=== PATIENT | female | born 2000 | race Caucasian/White ===

== ENCOUNTER 2022-05-23 09:24 | Emergency (ER) | payer SELFPAY ==
[~2022-05-23] VITALS: Ht 165.1 cm; Wt 54.5 kg
[2022-05-23 09:38] VITALS: BP 113/64
[2022-05-23] MEDS ORDERED: TETanus/Pertussis (Acell)/Diphther VAC/PF (Tdap-Adult) 0.5ml syringe IMVAC ONE (10:50)
[2022-05-23] MEDS ORDERED: LIDOcaine 1% W/epiNEPHrine 1:100,000 20ml vial SQ ONE (10:50)
[2022-05-23] MEDS ORDERED: LIDOCAINE 1%/EPI 1:100,000 inj. 10 ML multi-dose vial SQ ONE (10:55)
[2022-05-23] MEDS ORDERED: amox tr/potassium clavulanate 875/125mg TAB PO ONE (11:35)
[2022-05-23] MEDS ORDERED: AMOX-117 PO (11:48)
[2022-05-23] MEDS ORDERED: ibuprofen tablet 400 MG TABLET PO ONE (11:55)
== END 2022-05-23 12:00 | disposition home or self-care (01) ==
LOC: ER 09:25
DX: S61.411A Laceration without foreign body of right hand, initial encounter (principal); F12.90 Cannabis use, unspecified, uncomplicated; W54.0XXA Bitten by dog, initial encounter; Y93.89 Activity, other specified; Y92.89 Other specified places as the place of occurrence of the external cause; Y99.8 Other external cause status
CPT/HCPCS: 12001; 73130; 90471; 90715; 99283; J7030; A6449

== ENCOUNTER 2022-06-02 09:53 | Emergency (ER) | payer SELFPAY ==
[~2022-06-02] VITALS: Ht 165.1 cm; Wt 58.2 kg
[~2022-06-02 09:53] MED LIST: AMOX-117 PO
[2022-06-02 10:18] VITALS: BP 115/69
--- NOTE | 2022-06-02 10:33 | NUR ---
5 sutures removed from right hand
== END 2022-06-02 10:35 | disposition home or self-care (01) ==
LOC: ER 09:55
DX: S61.511D Laceration without foreign body of right wrist, subsequent encounter (principal); F12.10 Cannabis abuse, uncomplicated; Z48.00 Encounter for change or removal of nonsurgical wound dressing; X58.XXXD Exposure to other specified factors, subsequent encounter; Z79.899 Other long term (current) drug therapy
CPT/HCPCS: 99281

== ENCOUNTER 2022-10-11 15:38 | Emergency (ER) | payer MEDICAID ==
[~2022-10-11] VITALS: Ht 165.1 cm; Wt 56.8 kg
[2022-10-11 16:01] VITALS: BP 137/85
[2022-10-11] MEDS ORDERED: CLIN-142 PO (17:15)
[2022-10-11] MEDS ORDERED: HYDR-3965 PO (17:15)
[2022-10-11] MEDS ORDERED: ONDA4TAB12 PO (17:15)
== END 2022-10-11 17:58 | disposition home or self-care (01) ==
LOC: ER 15:39
DX: K04.7 Periapical abscess without sinus (principal); F12.90 Cannabis use, unspecified, uncomplicated; Z79.899 Other long term (current) drug therapy
CPT/HCPCS: 99283